=== PATIENT | female | born 1955 | race Two or more races ===

== ENCOUNTER 2022-08-21 19:51 | Emergency (ER) | payer OTHER ==
[~2022-08-21] VITALS: Ht 162.6 cm; Wt 118.0 kg
[2022-08-21] MEDS ORDERED: LISINOPRIL 20 MG TAB PO ONE ×2 (20:30→22:45)
[2022-08-21 23:01] VITALS: BP 164/115
== END 2022-08-21 23:15 | disposition home or self-care (01) ==
LOC: EDBD 19:51 → ER 19:53
DX: R04.0 Epistaxis (principal); E11.8 Type 2 diabetes mellitus with unspecified complications; I10 Essential (primary) hypertension

== ENCOUNTER 2023-02-03 00:31 | Emergency (ER) | payer OTHER ==
[~2023-02-03] VITALS: Ht 170.2 cm; Wt 120.0 kg
[2023-02-03] MEDS ORDERED: cloNIDine HCL 0.1 MG TAB PO ONE (01:00)
[2023-02-03 01:26] LABS: Basophils # (auto) 0 10 ^3/uL (0-0.2); Basophils % (auto) 0.4 % (0.0-2.0); Eosinophils # (auto) 0.1 10 ^3/uL (0-0.8); Eosinophils % (auto) 1.4 % (0.0-7.0); Hematocrit 39.6 % (36.0-46.0); Hemoglobin 13.3 g/dL (12.2-16.2); Lymphocytes # (auto) 0.7 10 ^3/uL (0.4-5.4); Lymphocytes % (auto) 7.2 % (10.0-50.0); Mean Corpuscular Hgb Conc. 33.6 g/dL (32.0-36.0); Mean Corpuscular Volume 92.1 fL (80.0-100.0); Monocytes # (auto) 0.5 10 ^3/uL (0-1.3); Monocytes % (auto) 5.2 % (0.0-12.0); Neutrophils # (auto) 7.8 10 ^3/uL (1.6-8.6); Neutrophils % (auto) 85.8 % (37.0-80.0); Nucleated Red Blood Cells % 0.2 %; Red Cell Distribution Width 15.3 % (11.8-14.3); White Blood Cell 9.1 10^3/uL (4.4-10.8)
[2023-02-03 01:44] LABS: Albumin 3.9 g/dL (3.4-5.0); BUN/Creatinine Ratio 18.7 (10.0-20.0); Calcium 9.1 mg/dL (8.5-10.1); Potassium 4.4 mmol/L (3.5-5.1)
[2023-02-03 01:47] LABS: Bilirubin, Total 0.6 mg/dL (0.2-1.0); Total Protein 7.7 g/dL (6.4-8.2)
[2023-02-03 02:23] LABS: Urine Bacteria FEW /hpf (None Seen); Urine Blood Negative /uL (Negative); Urine Mucus FEW (None Seen); Urine Specific Gravity 1.029 (1.001-1.035); Urine WBC 124 /hpf (0 - 5)
[2023-02-03] MEDS ORDERED: cefTRIAXone SOD 500 MG VL IM ONE (05:00)
[2023-02-03] MEDS ORDERED: CEPH250C PO ×3 (05:01→05:55)
[2023-02-03 05:35] VITALS: BP 155/82
== END 2023-02-03 06:01 | disposition home or self-care (01) ==
LOC: ER 00:31
DX: N39.0 Urinary tract infection, site not specified (principal); R10.13 Epigastric pain; I16.0 Hypertensive urgency; E11.9 Type 2 diabetes mellitus without complications
CPT/HCPCS: 36415; 71250; 74176; 80053; 81001; 83690; 84484; 85025; 93005; 96372; 99285; J0696

== ENCOUNTER 2023-02-09 05:25 | Emergency (ER) | payer OTHER ==
[~2023-02-09] VITALS: Ht 170.2 cm; Wt 117.4 kg
[~2023-02-09 05:25] MED LIST: CEPH250C PO
[2023-02-09] MEDS ORDERED: cloNIDine HCL 0.1 MG TAB PO ONE (06:00)
[2023-02-09 07:30] LABS: Basophils # (auto) 0 10 ^3/uL (0-0.2); Basophils % (auto) 0.6 % (0.0-2.0); Eosinophils # (auto) 0.3 10 ^3/uL (0-0.8); Eosinophils % (auto) 5.1 % (0.0-7.0); Hematocrit 38.2 % (36.0-46.0); Hemoglobin 12.7 g/dL (12.2-16.2); Lymphocytes # (auto) 2.2 10 ^3/uL (0.4-5.4); Lymphocytes % (auto) 34.7 % (10.0-50.0); Mean Corpuscular Hgb Conc. 33.3 g/dL (32.0-36.0); Mean Corpuscular Volume 93.1 fL (80.0-100.0); Monocytes # (auto) 0.5 10 ^3/uL (0-1.3); Monocytes % (auto) 8.4 % (0.0-12.0); Neutrophils # (auto) 3.3 10 ^3/uL (1.6-8.6); Neutrophils % (auto) 51.2 % (37.0-80.0); Nucleated Red Blood Cells % 0.3 %; Red Blood Cells 4.11 10^6/uL (4.0-5.20); Red Cell Distribution Width 15.1 % (11.8-14.3); White Blood Cell 6.4 10^3/uL (4.4-10.8)
[2023-02-09 07:31] LABS: Calcium 8.9 mg/dL (8.5-10.1); Potassium 5.1 mmol/L (3.5-5.1)
[2023-02-09 07:37] LABS: BUN/Creatinine Ratio 17.6 (10.0-20.0); Bilirubin, Total 0.2 mg/dL (0.2-1.0); Total Protein 7.3 g/dL (6.4-8.2)
[2023-02-09 08:26] LABS: Urine Bacteria NONE SEEN /hpf (None Seen); Urine Blood Negative /uL (Negative); Urine Specific Gravity 1.029 (1.001-1.035); Urine WBC 40 /hpf (0 - 5)
[2023-02-09 08:48] VITALS: BP 140/98
[2023-02-09] MEDS ORDERED: NITR-87 PO (08:57)
== END 2023-02-09 09:12 | disposition home or self-care (01) ==
LOC: ER 05:25
DX: N39.0 Urinary tract infection, site not specified (principal); I16.0 Hypertensive urgency; I10 Essential (primary) hypertension; E11.9 Type 2 diabetes mellitus without complications; Z88.1 Allergy status to other antibiotic agents
CPT/HCPCS: 36415; 80053; 81001; 83690; 85025; 93005

== ENCOUNTER 2023-05-12 20:35 | Emergency (ER) | payer OTHER ==
[~2023-05-12] VITALS: Ht 170.2 cm; Wt 116.0 kg
[~2023-05-12 20:35] MED LIST changes: +NITR-87 PO
[2023-05-12] MEDS ORDERED: ONDANSETRON HCL 4 MG/2 ML VIAL IV ONE (21:15)
[2023-05-12] MEDS ORDERED: cloNIDine HCL 0.1 MG TAB PO ONE (21:15)
[2023-05-12] MEDS ORDERED: MORPHINE SULFATE 4 MG/ML SYR/VIAL IV ONE (21:15)
[2023-05-12] MEDS ORDERED: KETOROLAC TROMETH 30 MG/ML 1ML VIAL IM ONE (22:15)
[2023-05-12 22:47] LABS: Basophils # (auto) 0.1 10 ^3/uL (0-0.2); Basophils % (auto) 0.6 % (0.0-2.0); Eosinophils # (auto) 0.3 10 ^3/uL (0-0.8); Eosinophils % (auto) 3.2 % (0.0-7.0); Hematocrit 39.7 % (36.0-46.0); Hemoglobin 12.8 g/dL (12.2-16.2); Lymphocytes # (auto) 2.2 10 ^3/uL (0.4-5.4); Lymphocytes % (auto) 24.3 % (10.0-50.0); Mean Corpuscular Hemoglobin 30.5 pg (28.0-32.0); Mean Corpuscular Hgb Conc. 32.3 g/dL (32.0-36.0); Mean Corpuscular Volume 94.4 fL (80.0-100.0); Monocytes # (auto) 0.8 10 ^3/uL (0-1.3); Monocytes % (auto) 8.3 % (0.0-12.0); Neutrophils # (auto) 5.9 10 ^3/uL (1.6-8.6); Neutrophils % (auto) 63.6 % (37.0-80.0); Red Cell Distribution Width 14.9 % (11.8-14.3); White Blood Cell 9.2 10^3/uL (4.4-10.8)
[2023-05-12 23:02] LABS: INR 0.99 (0.9-1.15); Partial Thromboplastin Time 31.1 SEC (24.5-34.5); Prothrombin Time 10.4 sec (9.3-11.8)
[2023-05-12 23:08] LABS: Alanine Aminotransferase 20 U/L (7-40); Albumin 4.4 g/dL (3.2-4.8); Alkaline Phosphatase 81 U/L (46-116); Anion Gap 5.2 (5-15); Aspartate Aminotransferase 19 U/L (13-40); BUN/Creatinine Ratio 15.7 (10.0-20.0); Bilirubin, Total 0.2 mg/dL (0.2-1.0); Blood Urea Nitrogen 17 mg/dL (9-23); Calcium 9.6 mg/dL (8.7-10.4); Carbon Dioxide 25.8 mmol/L (20-30); Chloride 109 mmol/L (98-107); Glucose 128 mg/dL (74-106); Potassium 4.4 mmol/L (3.5-5.1); Sodium 140 mmol/L (136-145); Total Protein 6.8 g/dL (5.7-8.2)
[2023-05-12] MEDS ORDERED: DICL50TA2 PO (23:25)
[2023-05-13 00:35] VITALS: PULSE 74; RESP 15; O2SAT 97
[2023-05-13 02:28] VITALS: BP 117/78; PULSE 74; RESP 16; TEMP 98.3; O2SAT 96
== END 2023-05-13 02:40 | disposition home or self-care (01) ==
LOC: ER 20:35
DX: M25.562 Pain in left knee (principal); S09.8XXA Other specified injuries of head, initial encounter; E11.9 Type 2 diabetes mellitus without complications; I10 Essential (primary) hypertension; Z79.01 Long term (current) use of anticoagulants; Z88.1 Allergy status to other antibiotic agents; W18.09XA Striking against other object with subsequent fall, initial encounter; Y93.89 Activity, other specified; Y92.89 Other specified places as the place of occurrence of the external cause; Y99.8 Other external cause status
CPT/HCPCS: 36415; 70450; 72125; 73562; 80053; 83735; 84484; 85025; 85610; 85730; 96372; 96374; 96375; 99285; J1885; J2270; J2405

== ENCOUNTER 2025-02-19 12:51 | Emergency (ER) | payer OTHER ==
[~2025-02-19] VITALS: Ht 175.3 cm; Wt 122.0 kg
[~2025-02-19 12:51] MED LIST changes: +DICL50TA2 PO
[2025-02-19 13:30] VITALS: PULSE 69; RESP 25; O2SAT 100
--- NOTE | 2025-02-19 13:30 | ED.PDOC ---
HPI Comments This is a 69 year old female presenting to the ED with chief complaint of HTN and leg swelling. Patient reports that she has been experiencing bilateral leg swelling, right worse than left, for the past 2 weeks with intermittent uncontrolled hypertension. Patient relays that at home her systolic blood pressure read 239. Patient denies any chest pain, SOB, dizziness, N/V, headache, numbness, or weakness. Chief Complaint: High Blood Pressure Time Seen by MD: 13:28 Primary Care Provider: NONE Reviewed Notes: Nurses Notes, Medications, Allergies Allergies: Coded Allergies: Azithromycin (Verified Allergy, Severe, RASH, 02/03/23) Penicillins (Verified Allergy, Unknown, 02/19/25) Home Meds Active Scripts Diclofenac Potassium (Diclofenac Potassium) 50 Mg Tab, 1 TAB PO BID PRN, #60 TAB 1 Refill Prov:LAINEY LEON 05/12/23 Nitrofurantoin Monohydrate Mac (Macrobid) 100 Mg Cap, 100 MG PO BID for 7 Days, #14 CAP Prov:HAYLEY DAMON MD 02/09/23 Cephalexin (KEFLEX CAPSULE) 250 Mg Cp, 1 CAP PO QID for 7 Days, #28 CAP Prov:GISELLA MEJIA DO 02/03/23 Cephalexin (KEFLEX CAPSULE) 250 Mg Cp, 1 CAP PO QID for 7 Days, #28 CAP Prov:GISELLA MEJIA DO 02/03/23 Information Source: Patient Mode of Arrival: Ambulatory Severity: Moderate Timing: Weeks Duration: Since onset Prehospital treatment: None Cardiac Risk Factors: HTN, Diabetes Associated Signs and Symptoms: Calf Swelling Past Medical History PAST MEDICAL HISTORY: DM, HTN Surgical History: Denies all surgeries SUPERVISOR 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 ROOM 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: 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 [employer] ROOM History Family History Family History: Reviewed,noncontributory to illness Social History Smoker: Non-Smoker Alcohol: Denies ETOH Use Drugs: Denies Drug Use Lives In: Home Constitutional: denies: chills, diaphoresis, fatigue, fever, malaise, sweats, weakness, others EENTM: denies: blurred vision, double vision, ear bleeding, ear discharge, ear drainage, ear pain, ear ringing, eye pain, eye redness, hearing loss, mouth pain, mouth swelling, nasal discharge, nose bleeding, nose congestion, nose pain, photophobia, tearing, throat pain, throat swelling, voice changes, others Respiratory: denies: cough, hemoptysis, orthopnea, SOB at rest, shortness of breath, SOB with excertion, stridor, wheezing, others Cardiovascular: reports: edema; denies: chest pain, dizzy spells, diaphoresis, Dyspnea on exertion, irregular heart beat, left arm pain, lightheadedness, palpitations, PND, syncope, others Gastrointestinal: denies: abdomen distended, abdominal pain, blood streaked bowels, constipated, diarrhea, dysphagia, difficulty swallowing, hematemesis, melena, nausea, poor appetite, poor fluid intake, rectal bleeding, rectal pain, vomiting, others Genitourinary: denies: abnormal vagina bleeding, burning, dyspareunia, dysuria, flank pain, frequency, hematuria, incontinence, pain, , vagina discharge, urgency, others Neurological: denies: dizziness, fainting, headache, left sided numbness, left sided weakness, numbness, paresthesia, pre-existing deficit, right sided numbness, right sided weakness, seizure, speech problems, tingling, tremors, weakness, others Musculoskeletal: denies: back pain, gout, joint pain, joint swelling, muscle pain, muscle stiffness, neck pain, others Integumetry: denies: bruises, change in color, change in hair/nails, dryness, laceration, lesions, lumps, rash, wounds, others Allergic/Immunocompromised: denies: Difficulty Healing, Frequent Infections, Hives, Itching, others Hematologic/Lymphatic: denies: anemia, blood clots, easy bleeding, easy bruising, swollen glands, others Endocrine: denies: excessive hunger, excessive sweating, excessive thirst, excessive urination, flushing, intolerance to cold, intolerance to heat, unexp lained weight gain, unexplained weight loss, others Psychiatric: denies: anxiety, bipolar disorder, depression, hopeless, panic disorder, schizophrenia, sleepless, suicidal, others All Other Systems: Reviewed and Negative Physical Exam General Appearance: No Apparent Distress, Normal HEENT: Normal ENT Inspection, Pharynx Normal, TMs Normal Neck: Full Range of Motion, Non-Tender, Normal, Normal Inspection Respiratory: Chest Non-Tender, Lungs Clear, No Accessory Muscle Use, No Respiratory Distress, Normal Breath Sounds Cardiovascular: No Edema, No JVD, No Murmur, No Gallop, Normal Peripheral Pulse s, Regular Rate/Rhythm Breast Exam: Deferred Gastrointestinal: No Organomegaly, Non Tender, No Pulsatile Mass, Normal Bowel Sounds, Soft Genitalia: Deferred Pelvic: Deferred Rectal: Deferred Extremities: No calf tenderness, Normal capillary refill, Normal inspection, Normal range of motion, Non-tender, No pedal edema Musculoskeletal : Apperance: Normal Neurologic: Alert, paper box cutter II-XII nml as Tested, No Motor Deficits, Normal Affect, Normal Mood, No Sensory Deficits Cerebellar Function: Normal Reflexes: Normal Skin: Dry, Normal Color, Warm Lymphatic: No Adenopathy Was a procedure done? Was a procedure done?: No CP Differential Dx Differential Diagnosis: Other Differential Diagnosis: CHF, HTN Essential, HTN Accelerated, HTN Encephalopathy, Medical NonCompliance X-Ray, Labs, Meds, VS Vital Signs Date Time Temp Pulse Resp B/P (MAP) Pulse Ox O2 Delivery O2 Flow Rate FiO2 02/19/25 23:56 97.6 77 17 112/55 (74) 98 97.6 02/19/25 23:02 69 02/19/25 22:44 72 181/94 02/19/25 22:30 69 15 150/93 (112) 98 02/19/25 21:45 98.0 74 16 137/81 (99) 96 98.0 02/19/25 21:45 74 16 96 Room Air* 0 02/19/25 20:00 77 12 116/52 (73) 96 02/19/25 19:30 98.1 69 12 123/72 (89) 96 98.1 02/19/25 19:00 72 12 115/63 (80) 93 02/19/25 18:45 66 127/59 02/19/25 18:40 73 18 206/84 (124) 99 02/19/25 18:30 66 12 127/59 (81) 99 02/19/25 17:46 73 199/100 02/19/25 16:00 98.2 75 16 215/99 (137) 98 98.2 02/19/25 14:37 197/99 02/19/25 13:30 69 25 100 Room Air* 0 21 02/19/25 13:30 97.9 69 25 242/110 (154) 100 97.9 02/19/25 13:27 97.8 72 16 247/11 (89) 99 97.8 Lab Test 02/19/25 16:21 02/19/25 13:50 02/19/25 13:35 Range/Units Sodium Level 144 136-145 mmol/L Potassium Level 4.8 3.5-5.1 mmol/L Chloride Level 111 H 98-107 mmol/L Carbon Dioxide Level 24 20-31 mmol/L Anion Gap 9 5-15 Blood Urea Nitrogen 13 9-23 mg/dL Creatinine 0.90 0.550-1.02 mg/dL Glomerular Filtration Rate Calc 70 >90 mL/min BUN/Creatinine Ratio 14.4 10.0-20.0 Serum Glucose 98 74-106 mg/dL Calcium Level 9.9 8.7-10.4 mg/dL White Blood Count 8.3 4.4-10.8 10^3/uL Red Blood Count 4.46 4.0-5.20 10^6/uL Hemoglobin 14.0 12.2-16.2 g/dL Hematocrit 42.0 36.0-46.0 % Mean Corpuscular Volume 94.3 80.0-100.0 fL Mean Corpuscular Hemoglobin 31.4 28.0-32.0 pg Mean Corpuscular Hemoglobin Concent 33.3 32.0-36.0 g/dL Red Cell Distribution Width 15.0 H 11.8-14.3 % Platelet Count 224 140-450 10^3/uL Mean Platelet Volume 9.3 6.9-10.8 fL Neutrophils (%) (Auto) 56.0 37.0-80.0 % Lymphocytes (%) (Auto) 30.4 10.0-50.0 % Monocytes (%) (Auto) 8.1 0.0-12.0 % Eosinophils (%) (Auto) 5.0 0.0-7.0 % Basophils (%) (Auto) 0.5 0.0-2.0 % Neutrophils # (Auto) 4.7 1.6-8.6 10 ^3/uL Lymphocytes # (Auto) 2.5 0.4-5.4 10 ^3/uL Monocytes # (Auto) 0.7 0-1.3 10 ^3/uL Eosinophils # (Auto) 0.4 0-0.8 10 ^3/uL Basophils # (Auto) 0 0-0.2 10 ^3/uL Nucleated Red Blood Cells 0.1 % Troponin I High Sensitivity 6 </=34 ng/L Urine Color Colorless Yellow Urine Clarity Clear Clear Urine pH 7.5 5.0-9.0 Urine Specific [place] 1.010 1.001-1.035 Urine Protein Negative Negative Urine Ketones Negative Negative Urine Blood Negative Negative /uL Urine Nitrite Negative Negative Urine Bilirubin Negative Negative Urine Urobilinogen Normal Negative mg/dL Urine Leukocyte Esterase Negative Negative /uL Urine RBC 1 0 - 4 /hpf Urine Microscopic WBC 3 0-5 /HPF Urine Squamous Epithelial Cells Few <5 /hpf Urine Bacteria None seen None Seen /hpf Urine Glucose Normal Normal mg/dL Current Medications Medications (Trade) Dose Ordered Sig/Garrett Route Start Time Stop Time Status Last Admin Nifedipine (Procardia Capsule) 10 mg ONCE ONCE PO 02/19/25 14:30 02/19/25 14:33 DC 02/19/25 14:37 Labetalol HCl 250 mg/Sodium Chloride 250 ml @ 60 mls/hr Q4H10M ONCE IV 02/19/25 17:00 02/19/25 21:09 DC 02/19/25 17:46 Nicardipine HCl 250 ml @ 50 mls/hr Q5H IV 02/19/25 22:30 02/20/25 02:33 DC 02/19/25 22:44 Magnesium Oxide (Mag-Ox Tablet) 400 mg ONCE ONCE PO 02/19/25 23:30 02/19/25 23:31 DC 02/19/25 23:39 Time of 1ST Reevaluation: 14:27 Reevaluation 1ST: Unchanged Patient Education/Counseling: Diagnosis, Treatment Family Education/Counseling: No Family Present Additional Information Previous visits reviewed: 05/12/23 for right knee pain The following tests were ordered, and results were reviewed by me: EKG, troponin, cbc, bmp, CXR, EKG Additional Information was gathered from interviewing the following independent historians: None I reviewed and agreed with the following test results read by other providers: CXR I discussed treatment and results with medical personnel and: patient Comprehensive systems review obtained and negative except for what is stated in the HPI. SEPSIS Sepsis Screen Physician Orders Chest Portable (02/19/25 13:25) Imaging Transfer Request (02/19/25 19:32) Vital Signs Date Time Temp Pulse Resp B/P (MAP) Pulse Ox O2 Delivery O2 Flow Rate FiO2 02/19/25 23:56 97.6 77 17 112/55 (74) 98 97.6 02/19/25 23:02 69 02/19/25 22:44 72 181/94 02/19/25 22:30 69 15 150/93 (112) 98 02/19/25 21:45 98.0 74 16 137/81 (99) 96 98.0 02/19/25 21:45 74 16 96 Room Air* 0 21 02/19/25 20:00 77 12 116/52 (73) 96 02/19/25 19:30 98.1 69 12 123/72 (89) 96 98.1 02/19/25 19:00 72 12 115/63 (80) 93 02/19/25 18:45 66 127/59 02/19/25 18:40 73 18 206/84 (124) 99 02/19/25 18:30 66 12 127/59 (81) 99 02/19/25 17:46 73 199/100 02/19/25 16:00 98.2 75 16 215/99 (137) 98 98.2 02/19/25 14:37 197/99 02/19/25 13:30 69 25 100 Room Air* 0 02/19/25 13:30 97.9 69 25 242/110 (154) 100 97.9 02/19/25 13:27 97.8 72 16 247/11 (89) 99 97.8 Laboratory Tests Test 02/19/25 13:50 White Blood Count 8.3 10^3/uL (4.4-10.8) Departure 1 Departure Time of Disposition: 17:47 Impression: Primary Impression: Hypertensive urgency Additional Impression: Pedal edema Disposition: 09 ADMITTED INPATIENT Admit to: ICU Condition: Serious Discharged With: Self Critical Care Note Critical Care Time?: Yes (55 min-critical care time only) Stability Stability form required: No Heart Score Heart Score: Heart Score Response (Comments) Value History Highly Suspicious 2 EKG Normal 0 Age >65 2 Risk Factors >3 or Hx ASHD 2 Troponin Normal limit 0 Total 6 I personally scribed for DOUG EDWARD MD ([email or web address]) on 02/19/25 at 13:30. Electro nically submitted by Tani Barrett [email or web address]). DOUG EDWARD MD Feb 19, 2025 13:30
[2025-02-19 14:24] LABS: Basophils # (auto) 0 10 ^3/uL (0-0.2); Basophils % (auto) 0.5 % (0.0-2.0); Eosinophils # (auto) 0.4 10 ^3/uL (0-0.8); Lymphocytes # (auto) 2.5 10 ^3/uL (0.4-5.4); Lymphocytes % (auto) 30.4 % (10.0-50.0); Mean Corpuscular Hemoglobin 31.4 pg (28.0-32.0); Mean Corpuscular Hgb Conc. 33.3 g/dL (32.0-36.0); Mean Corpuscular Volume 94.3 fL (80.0-100.0); Monocytes # (auto) 0.7 10 ^3/uL (0-1.3); Monocytes % (auto) 8.1 % (0.0-12.0); Neutrophils # (auto) 4.7 10 ^3/uL (1.6-8.6); Nucleated Red Blood Cells % 0.1 %; Platelet Count (auto) 224 10^3/uL (140-450); Red Blood Cells 4.46 10^6/uL (4.0-5.20); White Blood Cell 8.3 10^3/uL (4.4-10.8)
--- NOTE | 2025-02-19 14:25 | DVH ---
CHEST RADIOGRAPH Indication: htn Technique: Single frontal view of the chest was obtained Comparison: None FINDINGS: Lines and Tubes: None Lungs: No focal consolidation. Pleura: No effusion. No pneumothorax. Cardiomediastinal contours: Unremarkable Bones: No acute osseous abnormality. IMPRESSION: 1. No acute cardiopulmonary disease. HS:Y
[2025-02-19] MEDS: NIFEdipine 10 MG CAP PO ONE (14:37)
[2025-02-19 16:52] LABS: Potassium 4.8 mmol/L (3.5-5.1); Sodium 144 mmol/L (136-145)
[2025-02-19 16:53] LABS: Anion Gap 9 (5-15); Calcium 9.9 mg/dL (8.7-10.4); Carbon Dioxide 24 mmol/L (20-31)
[2025-02-19 16:58] LABS: BUN/Creatinine Ratio 14.4 (10.0-20.0); Blood Urea Nitrogen 13 mg/dL (9-23); Glucose 98 mg/dL (74-106)
[2025-02-19 17:01] LABS: Chloride 111 mmol/L (98-107)
[2025-02-19] MEDS: LABETALOL INJECTION 250 MG in SODIUM CHL 0.9% 200 ML IV ONE (17:46)
[2025-02-19 18:14] LABS: Urine Bacteria None Seen /hpf (None Seen)
[2025-02-19 18:26] LABS: Urine Blood Negative /uL (Negative); Urine Clarity Clear (Clear); Urine Color Colorless (Yellow); Urine Protein, UAD Negative (Negative); Urine Squamous Epithelial Cell FEW /hpf (<5); Urine Urobilinogen Normal (Negative); Urine WBC 3 /HPF (0-5); Urine pH 7.5 (5.0-9.0)
[2025-02-19 21:45] VITALS: PULSE 74; RESP 16; O2SAT 96
--- NOTE | 2025-02-19 23:04 | ECG ---
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
[2025-02-19] MEDS: MAGNESIUM OXIDE 400 MG TAB PO ONE (23:39)
[2025-02-19 23:56] VITALS: BP 112/55; PULSE 77; RESP 17; TEMP 97.6; O2SAT 98
== END 2025-02-20 00:14 | disposition short-term general hospital (02) ==
LOC: ER 12:51 → EDBD 12:51 → ER 02-20 00:14
DX: I16.0 Hypertensive urgency (principal); R60.0 Localized edema; E11.9 Type 2 diabetes mellitus without complications; Z88.0 Allergy status to penicillin; Z88.1 Allergy status to other antibiotic agents; Z79.899 Other long term (current) drug therapy
CPT/HCPCS: 36415; 71045; 80048; 81001; 84484; 85025; 93005; 96365; 96366; 96367; 99285; J7050

== ENCOUNTER 2025-03-02 04:36 | Emergency (ER) | payer OTHER ==
[~2025-03-02] VITALS: Ht 167.6 cm; Wt 100.0 kg
--- NOTE | 2025-03-02 05:15 | ED.PDOC ---
History of Present Illness HPI Comments 69 y/o morbidly obese, F is BIBA for headache, watery-brown diarrhea, and multiple episodes of nonbilious or bloody vomiting, with associated nausea. Patient reports on symptoms ensuing after consuming 'bad sw[place] food,' last night. Significant hsitory of DM, HLD, HTN, and UTI's. She denies any abdominal pain, urinary symptoms, fever, chills, or further associated symptoms. Chief Complaint: Headache Time Seen by MD: 04:35 Primary Care Provider: NONE Reviewed Notes: Nurses Notes, Dba Developer Notes, Medications, Allergies Allergies: Coded Allergies: Azithromycin (Verified Allergy, Severe, RASH, 02/03/23) Penicillins (Verified Allergy, Unknown, 02/19/25) Home Meds Active Scripts Diclofenac Potassium (Diclofenac Potassium) 50 Mg Tab, 1 TAB PO BID PRN, #60 TAB 1 Refill Prov:LAINEY LEON 05/12/23 Nitrofurantoin Monohydrate Mac (Macrobid) 100 Mg Cap, 100 MG PO BID for 7 Days, #14 CAP Prov:HAYLEY DAMON MD 02/09/23 Cephalexin (KEFLEX CAPSULE) 250 Mg Cp, 1 CAP PO QID for 7 Days, #28 CAP Prov:GISELLA MEJIA DO 02/03/23 Cephalexin (KEFLEX CAPSULE) 250 Mg Cp, 1 CAP PO QID for 7 Days, #28 CAP Prov:GISELLA MEJIA DO 02/03/23 Information Source: Patient, Emergency Med Personnel Mode of Arrival: EMS Severity: Moderate Timing: Hours Duration: Since onset Prehospital treatment: 12 Lead EKG, Accucheck (132), 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 Past Medical History PAST MEDICAL HISTORY: DM, High Lipids, HTN, UTI'S Surgical History: Denies all surgeries A AND P MECHANIC History: No Pertinent A AND P MECHANIC History Family History Family History: Reviewed,noncontributory to illness Social History Smoker: Non-Smoker Alcohol: Denies ETOH Use Drugs: Denies Drug Use Lives In: Home All Other Systems: Reviewed and Negative (Comprehensive systems review obtained and negative except for what is stated in the HPI.) Physical Exam General Appearance: No Apparent Distress, Obese, Other (appears uncomfortable ) HEENT: Normal ENT Inspection, Pharynx Normal, TMs Normal Neck: Full Range of Motion, Non-Tender, Normal, Normal Inspection Respiratory: Chest Non-Tender, Lungs Clear, No Accessory Muscle Use, No Respiratory Distress, Normal Breath Sounds Cardiovascular: No Edema, No JVD, No Murmur, No Gallop, Normal Peripheral Pulses, Regular Rate/Rhythm Breast Exam: Deferred Gastrointestinal: No Organomegaly, Non Tender, No Pulsatile Mass, Normal Bowel Sounds, Soft, Other (actively vomiting ) Genitalia: Deferred Pelvic: Deferred Rectal: Deferred Extremities: No calf tenderness, Normal capillary refill, Normal inspection, Normal range of motion, Non-tender, No pedal edema Musculoskeletal : Apperance: Normal Neurologic: Alert, business systems technician II-XII nml as Tested, No Motor Deficits, Normal Affect, Normal Mood, No Sensory Deficits Cerebellar Function: Normal Reflexes: Normal Skin: Dry, Normal Color, Warm Lymphatic: No Adenopathy Was a procedure done? Was a procedure done?: No Differential Dx Considerations may include: Diverticular disease, Gastritis/PUD, Gastroenteritis, UTI, Electrolyte Imbalan ce, Food Poisoning, among others X-Ray, Labs, Meds, VS Vital Signs Date Time Temp Pulse Resp B/P (MAP) Pulse Ox O2 Delivery O2 Flow Rate FiO2 03/02/25 12:59 144/74 03/02/25 11:30 214/98 03/02/25 11:00 68 16 95 Room Air* 0 21 03/02/25 09:30 69 16 206/93 03/02/25 09:30 98.1 69 16 206/93 (130) 94 98.1 03/02/25 08:36 78 15 226/97 03/02/25 08:16 98.1 80 15 226/97 (140) 94 98.1 03/02/25 06:32 97.8 75 16 162/102 (122) 95 97.8 03/02/25 04:50 98.8 82 18 152/84 (106) 99 98.8 Lab Test 03/02/25 12:59 03/02/25 05:49 03/02/25 05:40 Range/Units POC Glucose 101 70-106 mg/dl White Blood Count 8.7 4.4-10.8 10^3/uL Red Blood Count 4.44 4.0-5.20 10^6/uL Hemoglobin 13.9 12.2-16.2 g/dL Hematocrit 41.6 36.0-46.0 % Mean Corpuscular Volume 93.7 80.0-100.0 fL Mean Corpuscular Hemoglobin 31.3 28.0-32.0 pg Mean Corpuscular Hemoglobin Concent 33.4 32.0-36.0 g/dL Red Cell Distribution Width 14.7 H 11.8-14.3 % Platelet Count 229 140-450 10^3/uL Mean Platelet Volume 8.5 6.9-10.8 fL Neutrophils (%) (Auto) 78.9 37.0-80.0 % Lymphocytes (%) (Auto) 13.7 10.0-50.0 % Monocytes (%) (Auto) 5.1 0.0-12.0 % Eosinophils (%) (Auto) 1.7 0.0-7.0 % Basophils (%) (Auto) 0.6 0.0-2.0 % Neutrophils # (Auto) 6.9 1.6-8.6 10 ^3/uL Lymphocytes # (Auto) 1.2 0.4-5.4 10 ^3/uL Monocytes # (Auto) 0.4 0-1.3 10 ^3/uL Eosinophils # (Auto) 0.1 0-0.8 10 ^3/uL Basophils # (Auto) 0 0-0.2 10 ^3/uL Nucleated Red Blood Cells 0.1 % Sodium Level 142 136-145 mmol/L Potassium Level 4.6 3.5-5.1 mmol/L Chloride Level 109 H 98-107 mmol/L Carbon Dioxide Level 24 20-31 mmol/L Anion Gap 9 5-15 Blood Urea Nitrogen 15 9-23 mg/dL Creatinine 1.12 H 0.550-1.02 mg/dL Glomerular Filtration Rate Calc 54 >90 mL/min BUN/Creatinine Ratio 13.4 10.0-20.0 Serum Glucose 141 H 74-106 mg/dL Calcium Level 10.2 8.7-10.4 mg/dL Troponin I High Sensitivity 5 </=34 ng/L Urine Color Colorless Yellow Urine Clarity Clear Clear Urine pH 8.0 5.0-9.0 Urine Specific [place] 1.012 1.001-1.035 Urine Protein Negative Negative Urine Ketones Negative Negative Urine Blood Negative Negative /uL Urine Nitrite Negative Negative Urine Bilirubin Negative Negative Urine Urobilinogen Normal Negative mg/dL Urine Leukocyte Esterase Negative Negative /uL Urine RBC None seen 0 - 4 /hpf Urine Microscopic WBC 2 0-5 /HPF Urine Squamous Epithelial Cells None seen <5 /hpf Urine Bacteria None seen None Seen /hpf Urine Glucose Normal Normal mg/dL Current Medications Medications (Trade) Dose Ordered Sig/Garrett Route Start Time Stop Time Status Last Admin Sodium Chloride 1,000 ml @ 1,000 mls/hr Q1H ONCE IV 03/02/25 04:45 03/02/25 05:44 DC 03/02/25 06:43 Ondansetron HCl (Zofran) 4 mg ONCE ONCE IV 03/02/25 04:45 03/02/25 04:46 DC 03/02/25 06:42 Famotidine (Pepcid Tablet) 20 mg ONCE ONCE PO 03/02/25 04:45 03/02/25 04:46 DC 03/02/25 08:10 Ketorolac Tromethamine (Toradol Injection) 15 mg ONCE ONCE IV 03/02/25 04:45 03/02/25 04:46 DC 03/02/25 06:42 Morphine Sulfate 2 mg ONCE ONCE IV 03/02/25 08:15 03/02/25 08:16 DC 03/02/25 08:36 Ondansetron HCl (Zofran) 4 mg ONCE ONCE IV 03/02/25 08:15 03/02/25 08:16 DC 03/02/25 08:36 Clonidine HCl (Catapres Tablet) 0.2 mg ONCE ONCE PO 03/02/25 11:30 03/02/25 11:31 DC 03/02/25 11:30 X-Ray, Labs, Meds, VS Comment in the ed the pt is mostly complaining of hesdaches her blood pressure is very high bmp normal cbc ormal troponin [address] head shows ischemic changes and sinusitis but no other issues Patient has been medicated and observed she feels much better and willing to be discharged home Time of 1ST Reevaluation: 05:05 Reevaluation 1ST: Unchanged Time of 2ND Reevaluation: 12:14 Reevaluation 2ND: Unchanged Patient Education/Counseling: Diagnosis, Treatment, Prognosis Family Education/Counseling: Diagnosis, Treatment, Prognosis, No Family Present Additional Information Previous visits reviewed: February 03, 2023 and February 19, 2025 encounters for abdominal pain and hypertensive urgency, respectively. The following tests were ordered, and results were reviewed by me: UA, CBC, BMP, troponin Additional Information was gathered from interviewing the following independent historians: EMS I reviewed and agreed with the following test results read by other providers: N/A I discussed treatment and results with medical personnel and: patient SEPSIS Sepsis Screen Physician Orders Electrocardigram (03/02/25 12:17) Chest Portable (03/02/25 12:17) Head Without Contrast (03/02/25 13:25) Vital Signs Date Time Temp Pulse Resp B/P (MAP) Pulse Ox O2 Delivery O2 Flow Rate FiO2 03/02/25 12:59 144/74 03/02/25 11:30 214/98 03/02/25 11:00 68 16 95 Room Air* 0 21 03/02/25 09:30 69 16 206/93 03/02/25 09:30 98.1 69 16 206/93 (130) 94 98.1 03/02/25 08:36 78 15 226/97 03/02/25 08:16 98.1 80 15 226/97 (140) 94 98.1 03/02/25 06:32 97.8 75 16 162/102 (122) 95 97.8 03/02/25 04:50 98.8 82 18 152/84 (106) 99 98.8 Laboratory Tests Test 03/02/25 05:49 White Blood Count 8.7 10^3/uL (4.4-10.8) Medications Medications Dose Ordered Sig/Garrett Route Start Time Stop Time Status Last Admin Dose Admin Clonidine HCl 0.2 mg ONCE ONCE PO 03/02/25 11:30 03/02/25 11:31 DC 03/02/25 11:30 Famotidine 20 mg ONCE ONCE PO 03/02/25 04:45 03/02/25 04:46 DC 03/02/25 08:10 Ketorolac Tromethamine 15 mg ONCE ONCE IV 03/02/25 04:45 03/02/25 04:46 DC 03/02/25 06:42 Morphine Sulfate 2 mg ONCE ONCE IV 03/02/25 08:15 03/02/25 08:16 DC 03/02/25 08:36 Ondansetron HCl 4 mg ONCE ONCE IV 03/02/25 04:45 03/02/25 04:46 DC 03/02/25 06:42 Ondansetron HCl 4 mg ONCE ONCE IV 03/02/25 08:15 03/02/25 08:16 DC 03/02/25 08:36 Sodium Chloride 1,000 ml @ 1,000 mls/hr Q1H ONCE IV 03/02/25 04:45 03/02/25 05:44 DC 03/02/25 06:43 Departure 1 Departure Time of Disposition: 16:20 Impression: Primary Impression: Acute gastroenteritis Additional Impressions: Hypertensive urgency Severe headache Disposition: 01 HOME / SELF CARE / HOMELESS Condition: Fair Additional Instructions: Take your medications as described at home and follow up with your doctor possible and neurologist Check your blood pressure several times and follow up with your doctor at [facility] Hydrocodone-Acetaminophen (Hydrocodone Bitartrate/AC 5-325 mg) 1 Tab Tab 1 TAB PO BID for 10 Days, #20 TAB Prov: NIRMAL JOINER MD 03/02/25 Metoclopramide Hcl (Reglan) 10 Mg Tab 10 MG PO BID for 10 Days, #20 TAB Prov: NIRMAL JOINER MD 03/02/25 Discharged With: Self Critical Care Note Critical Care Time?: No Stability Stability form required: No Heart Score Heart Score: Heart Score Response (Comments) Value History Slightly Suspicious 0 EKG Normal 0 Age >65 2 Risk Factors 1 or 2 risk factors 1 Troponin Normal limit 0 Total 3 I personally scribed for CESAR WILLIS MD ([email or web address]) on 03/02/25 at 05:15. Electronically submitted by Shaji Khan ([email or web address]). CESAR WILLIS MD Mar 02, 2025 05:15 NIRMAL JOINER MD Mar 02, 2025 08:14
[2025-03-02 06:20] LABS: Urine Protein, UAD Negative (Negative)
[2025-03-02 06:33] LABS: Hematocrit 41.6 % (36.0-46.0); Hemoglobin 13.9 g/dL (12.2-16.2); Mean Corpuscular Hemoglobin 31.3 pg (28.0-32.0); Mean Corpuscular Volume 93.7 fL (80.0-100.0); Nucleated Red Blood Cells % 0.1 %; Potassium 4.6 mmol/L (3.5-5.1); Sodium 142 mmol/L (136-145)
[2025-03-02 06:34] LABS: Anion Gap 9 (5-15); Carbon Dioxide 24 mmol/L (20-31)
[2025-03-02 06:35] LABS: Calcium 10.2 mg/dL (8.7-10.4); Chloride 109 mmol/L (98-107)
[2025-03-02 06:40] LABS: BUN/Creatinine Ratio 13.4 (10.0-20.0); Blood Urea Nitrogen 15 mg/dL (9-23)
[2025-03-02] MEDS: ONDANSETRON HCL 4 MG/2 ML VIAL IV ONE ×2 (06:42→08:36)
[2025-03-02] MEDS: KETOROLAC TROMETH 30 MG/ML 1ML VIAL IV ONE (06:42)
[2025-03-02 06:43] LABS: Glucose 141 mg/dL (74-106)
[2025-03-02] MEDS: SODIUM CHLORIDE 0.9% 1,000 ML IV ONE (06:43)
[2025-03-02] MEDS: FAMOTIDINE 20 MG TAB PO ONE (08:10)
[2025-03-02] MEDS: MORPHINE SULFATE INJ 2 MG/ml SYRG IV ONE (08:36)
[2025-03-02 11:00] VITALS: PULSE 68; RESP 16; O2SAT 95
--- NOTE | 2025-03-02 13:18 | DVH ---
CHEST RADIOGRAPH Indication: htn Technique: Single frontal view of the chest was obtained COMPARISON: XY CHEST PORTABLE on DOS: 02/19/25 FINDINGS: Lines and Tubes: None Lungs: Clear Pleura: No effusion. No pneumothorax. Cardiomediastinal contours: Unremarkable Bones: Unremarkable IMPRESSION: No acute disease.
--- NOTE | 2025-03-02 14:32 | DVH ---
EXAM: CT HEAD WITHOUT CONTRAST HISTORY: Severe headache and hypertension COMPARISON: CT HEAD WITHOUT CONTRAST on DOS: 05/12/23 TECHNIQUE: Noncontrast axial CT images of the head were performed. Sagittal and coronal reformatted i mages were obtained. This CT exam was performed using 1 or more of the following dose reduction techn iques: Automated exposure control, adjustment of the mA and/or kv according to patient size, or the u se of iterative reconstruction techniques. Radiation Dose: CTDI volume is 66.3 mGy. Dose-length product is 1306.25 mGy*cm FINDINGS: There is mild global brain atrophy. There is mild to moderate decreased attenuation in the periventri cular white matter. No intracranial hemorrhage, mass, midline shift, hydrocephalus, or evidence of ac [place] large vessel infarct. There is mild mucosal thickening of the right ethmoid air cells. The bilate ral mastoid air cells and middle ear spaces are clear. No cranial fracture or scalp edema. IMPRESSION: 1. Global brain atrophy and chronic ischemic changes without evidence of acute intracranial process. 2. Mild right ethmoid sinus disease.
[2025-03-02] MEDS ORDERED: HYDR-4902 PO (16:22)
[2025-03-02] MEDS ORDERED: METO-281 PO (16:22)
[2025-03-02 19:30] VITALS: PULSE 60; RESP 17; O2SAT 96
[2025-03-02 20:00] VITALS: BP 160/96; PULSE 59; RESP 17; TEMP 98; O2SAT 99
[2025-03-02] MEDS: ACETAMINOPHEN 325 MG TAB PO ONE (20:19)
== END 2025-03-02 20:56 | disposition home or self-care (01) ==
LOC: EDBD 04:36 → ER 04:36
DX: K52.9 Noninfective gastroenteritis and colitis, unspecified (principal); I16.0 Hypertensive urgency; R51.9 Headache, unspecified; I10 Essential (primary) hypertension; E11.9 Type 2 diabetes mellitus without complications; E78.5 Hyperlipidemia, unspecified; Z87.440 Personal history of urinary (tract) infections; Z88.0 Allergy status to penicillin; Z88.1 Allergy status to other antibiotic agents
CPT/HCPCS: 36415; 70450; 71045; 80048; 81001; 82947; 84484; 85025; 96361; 96374; 96375; 96376; 99285; J1885; J2270; J2405; J7030; 82962